=== PATIENT | female | born 1955 | race African-American/Black ===

== ENCOUNTER → 2016-07-21 | Outpatient (CLI) | payer OTHER ==
[~2016-07-21] MED LIST: AVELOX400 MG PO; CLARITIN10 MG PO; COUGH MEDICINE; KEFLEX500 MG PO; PAXIL; VOLTAREN75 MG PO; ZITHROMAX
--- NOTE | ~2016-07-21 | MY11 ---
[facility] A Service of [facility] RADIOLOGY TEXT RESULTS PATIENT: DENICE GRIFFIN LOCATION: [facility] : 57 UNIT #: [id number] AGE: [address]: MAYRA CAMARA MD SEX: F ORDER DR: [id number] [facility]. [place], [place] [address] [id number] O MR#: [id number] Acc #: [id number] NAME: DENICE GRIFFIN : 1955 SEX: F STUDY DATE/TIME: 07/21/2016 10:16 UNIT: [facility] ROOM: STUDY DESCRIPTION: MY Mammogram Screening Dig [facility] Attending Physician: Mayra Camara M.D. Referring Physician: Mayra Camara M.D. Ordering Physician: Physician Non-Staff Primary Care Physician: Mayra Camara M.D. MEDICAL IMAGING REPORT This report is preliminary unless electronic signature is present EXAM Digital screening mammogram 07/21/2016 HISTORY 60-year-old woman no risk elevation. Annual screen. COMPARISON Mammograms date to 07/08/2010 with most recent 07/16/2015. FINDINGS Digital imaging of each breast was completed utilizing a two-view examination of each breast in craniocaudal and mediolateral-oblique projections. Review and interpretation of digital mammograms include a second review in conjunction with FDA-approved CAD device. There is a normal parenchymal presentation bilaterally consistent with the patient's age. There are no breast masses imaged and no parenchymal asymmetry is visualized. There are no suspicious microcalcifications and I see no focal architectural disturbance. IMPRESSION Negative screening digital mammogram. One-year followup recommended. Patients over the age of 40 are entered into a reminder system with target due date for the next mammogram. A result letter will also be sent to the patient. BIRADS: 1 Negative STAT * RESULT Dictated by... [facility] A Service of [facility] RADIOLOGY TEXT RESULTS PATIENT: DENICE GRIFFIN LOCATION: [facility] : 57 UNIT #: [id number] AGE: [address]: MAYRA CAMARA MD SEX: F ORDER DR: Agustin Samson M.D. THIS IS AN ELECTRONICALLY VERIFIED REPORT Agustin Samson M.D. at 07/21/2016 10:50 AM CISCO/octavio TD: 07/21/2016 10:36 JOB #: [id number] MEDICAL IMAGING REPORT Page 1 of 1 COPY
== END | disposition home or self-care (01) ==
LOC: CWCC 10:00
DX: Z12.31 Encounter for screening mammogram for malignant neoplasm of breast (principal)
CPT/HCPCS: G0202